=== PATIENT | female | born 1940 | race Caucasian/White ===

== ENCOUNTER 2017-10-01 04:58 | Day surgery (SDC) | payer OTHER, MEDICARE ==
[2017-09-29 17:14] VITALS: BMI 26.0
[2017-10-01] MEDS ORDERED: CLINDAMYCIN 600 MG PREMIX BAG IVPB ONE ×2 (11:26→13:30)
[2017-10-01] MEDS ORDERED: CLINDAMYCIN PHOSPHATE 600 MG/4 ML VIAL ONE (12:13)
[2017-10-01] MEDS ORDERED: BUPIVACAINE HCL/PF 0.5% (5MG/ML) 10 ML VIAL ONE (13:00)
[2017-10-01] MEDS ORDERED: LIDOCAINE 1%/EPI 1:100000 (20 ML MULTI DOSE VIAL) ONE (13:00)
[2017-10-01] MEDS ORDERED: LIDOCAINE HCL/PF 2% SDV 5ML VIAL ONE (13:26)
[2017-10-01] MEDS ORDERED: MIDAZOLAM HCL 2 MG/2 ML SINGLE DOSE VIAL ONE (13:27)
[2017-10-01] MEDS ORDERED: PROPOFOL 20 ML ONE (13:27)
[2017-10-01] MEDS ORDERED: LIDOCAINE 1%/EPI 1:100000 (20 ML MULTI DOSE VIAL) IJ ONE (13:32)
[2017-10-01] MEDS ORDERED: BUPIVACAINE HCL/PF 0.5% (5MG/ML) 10 ML VIAL IJ ONE (14:05)
[2017-10-01] MEDS ORDERED: ONDANSETRON 4 MG/2 ML VIAL IVPUSH PRN (14:21)
[2017-10-01] MEDS ORDERED: ACETAMINOPHEN 325 MG TABLET (FP) PO PRN (14:21)
[2017-10-01] MEDS ORDERED: oxyCODONE HCL 5 MG TABLET PO PRN (14:21)
[2017-10-01] MEDS ORDERED: LACTATED RINGERS SOLUTION 1,000 ML IV SCH (14:30)
[2017-10-01 15:38] VITALS: TEMP 97.4
[2017-10-01 16:36] VITALS: BP 138/71; PULSE 84
--- NOTE | 2017-10-01 17:44 | OP ---
DATE OF OPERATION: 10/01/2017 PREOPERATIVE DIAGNOSIS: Right 2nd digit hammertoe. POSTOPERATIVE DIAGNOSIS: Right foot 2nd digit hammertoe. PROCEDURE: Right 2nd digit arthroplasty. SURGEON: Marcial Crawford MD JUNIOR FINANCIAL ANALYST: Dr. Michaels, PGY-2 ANESTHESIA: Local with IV sedation. HEMOSTASIS: Electrocautery. ESTIMATED BLOOD LOSS: 1 mL COMPLICATIONS: None. CONDITION OF THE PATIENT: Stable. MATERIALS USED: Vicryl 3-0 suture, nylon 4-0 suture. DESCRIPTION: The patient was brought to the operating room and placed on the operating table in the supine position. After adequate IV sedation was obtained, a local infiltrative block was then administered utilizing a 1:1 mixture of 1% lidocaine with epinephrine and 0.5% Marcaine plain. A total of 10 mL was injected through the surgical site, right foot 2nd toe. The right foot was then prepped, draped, and scrubbed in the usual aseptic fashion. Attention was first directed to the dorsal aspect of the 2nd digit where a vertical semielliptical incision was made using number 15 blade, and a skin wedge was removed from the operative field and sent to Pathology. At this time, the extensor tendon was exposed, and using a number 15 blade was cut. The head of the proximal phalanx was freed from its lateral and medial collateral ligaments, and extensor tendon was moved proximally. Using a bone cutter, the head of the proximal phalanx was cut and removed from the operative field and sent to Pathology. The position of the 2nd toe appeared to be reduced in a perfect alignment. At this time, small extra extensor tendon was cut, about 3 mm, and passed from the operative field. Next, the extensor tendon was sutured using 3-0 Vicryl suture, and the skin was sutured using 4-0 nylon sutures. Postoperative injection including 0.5% Marcaine plain about total of 5 mL was injected throughout the surgical site. At this time, the postoperative dressings such as Betadine-soaked Adaptic and 4 x 4 sterile gauze, ABD pad, and Tereso and Coban applied to the right foot. The patient tolerated the procedure and anesthesia well and was transferred to the recovery room with vital signs stable and vascular status intact to the right lower extremity. Following the postoperative monitoring, the patient will be discharged home with an appointment and was already given the instructions and prescriptions and the postop shoe and the date of her followup appointment. Dr. Michaels, PGY-2 dictating for MARY Iraheta DPM [id number]
== END 2017-10-01 16:41 | disposition home or self-care (01) ==
LOC: JASU-SURG 04:58
PROVIDERS: ATTEND Podiatrist Foot Surgery
PROC: 0SRP0JZ Replacement of Right Toe Phalangeal Joint with Synthetic Substitute, Open Approach (ICD-10-PCS; principal; 2017-10-01 13:00)
DX: M20.41 Other hammer toe(s) (acquired), right foot (principal)
CPT/HCPCS: 86850; 86900; 86901; 94760; 97116-GP